=== PATIENT | female | born 1955 | race Caucasian/White ===

== ENCOUNTER → 2017-03-22 | Outpatient (CLI) | payer BC ==
[~2017-03-22] MED LIST: CALC-425 PO; GABA-338 PO
--- NOTE | 2017-03-22 10:09 | DI ---
Indication: ITS.REASON: R31.9 HEMATURIA; M54.5 LBP PROCEDURE: CT RENAL W/O CONTRAST: Encounter: Initial Comparison: September 06, 2013 Technique: Axial CT images were performed through the abdomen and pelvis without intravenous contrast. Coronal and sagittal two-dimensional reformats. Automated Exposure Control and Iterative Reconstruction dose reducing techniques were utilized. Findings: The lung bases are clear. The unenhanced contours of the liver are unremarkable. The gallbladder is normal. The spleen, pancreas and adrenal glands are normal. Right kidney has a stable 2 mm interpolar area stone along with a larger 6 mm lower pole. There is a prominent stone in the right renal pelvis which is new from the prior study measuring 14 x 8 x 14 mm in size. No definite additional stones in the right ureter. Left kidney appears normal. Multiple pelvic phleboliths. Bladder is normal. Uterus is unremarkable. No free fluid. Mild sigmoid diverticulosis without evidence of acute diverticulitis. Bone windows show enlarging Schmorl's nodes within the L4 vertebra and mild degenerative change in the lumbar spine.. Impression: New large stone in the right renal pelvis as measured above. .
== END ==
LOC: IMA 09:14
PROVIDERS: ATTEND Specialist
DX: N20.0 Calculus of kidney (principal); M54.5 Low back pain; R31.9 Hematuria, unspecified